=== PATIENT | male | born 1995 ===

== ENCOUNTER 2022-04-21 07:33 | Emergency (ER) | payer SELFPAY ==
[~2022-04-21] VITALS: Ht 172.7 cm; Wt 77.0 kg
[2022-04-21] MEDS ORDERED: IBUPROFEN 600MG TABLET PO ONE (08:45)
[2022-04-21] MEDS ORDERED: IBUP-2029 MT (09:36)
[2022-04-21] MEDS ORDERED: NORF MT (09:36)
[2022-04-21 10:25] VITALS: BP 121/71
== END 2022-04-21 10:37 | disposition home or self-care (01) ==
LOC: ER 07:33
DX: S70.02XA Contusion of left hip, initial encounter (principal); S70.01XA Contusion of right hip, initial encounter; S30.0XXA Contusion of lower back and pelvis, initial encounter; V13.4XXA Pedal cycle driver injured in collision with car, pick-up truck or van in traffic accident, initial encounter; Y93.89 Activity, other specified; Y92.89 Other specified places as the place of occurrence of the external cause; Y99.8 Other external cause status
CPT/HCPCS: 72100; 73523; 73552; 99284